=== PATIENT | female | born 1940 | race Caucasian/White ===

== ENCOUNTER → 2020-08-21 | Outpatient (CLI) | payer MEDICARE, OTHER ==
[~2020-08-21] MED LIST: ACET325 PO; LEVO750 PO; ONDA4ODT MM; RXONDA4ODT MM
== END | disposition home or self-care (01) ==
LOC: LAB SHORT 15:16 → PLD 15:16
DX: D17.22 Benign lipomatous neoplasm of skin and subcutaneous tissue of left arm (principal)
CPT/HCPCS: 88304

== ENCOUNTER → 2020-09-03 | Outpatient (CLI) | payer MEDICARE, OTHER | END | disposition home or self-care (01) | LOC: PLD 10:57 → LAB SHORT 10:57 | DX: D17.22 Benign lipomatous neoplasm of skin and subcutaneous tissue of left arm (principal) | CPT/HCPCS: 88305 ==

== ENCOUNTER 2021-03-26 06:42 | Day surgery (SDC) | payer MEDICARE, OTHER ==
[~2021-03-26] VITALS: Ht 162.6 cm; Wt 60.8 kg
[~2021-03-26 06:42] MED LIST changes: +HYDCHL25 PO
--- NOTE | 2021-03-26 11:49 | NUR ---
OFFICE CALLED TO SEE IF NUTRITION CONSULT OR APPT HAD BEEN SET UP FOR PT. NOTHING SET UP AT THIS TIME. PT WANTING TO LEAVE DUE TO DAUGHTER WAITING OUTSIDE. SALINE LOCK REMOVED AND DISCHARGE GONE OVER WITH PT, VERBALIZES UNDERSTANDING.
--- NOTE | 2021-03-26 12:08 | NUR ---
DR BIRMINGHAM IN TALKED WITH PT ABOUT GETTING APPT SET UP WITH [facility]. PT TO PRIVATE VEHICLE PER W/C WITH ONE STAFF.
== END 2021-03-26 12:00 | disposition home or self-care (01) ==
LOC: MHTC 06:42
DX: R13.12 Dysphagia, oropharyngeal phase (principal); T17.908S Unspecified foreign body in respiratory tract, part unspecified causing other injury, sequela; I48.91 Unspecified atrial fibrillation; I10 Essential (primary) hypertension; Z87.891 Personal history of nicotine dependence; Z88.8 Allergy status to other drugs, medicaments and biological substances
CPT/HCPCS: 49440; 99152; 99153; C1769; C1887; J2250; J3010; J7030; Q9967

== ENCOUNTER 2021-09-02 09:55 | Day surgery (SDC) | payer MEDICARE, OTHER ==
[~2021-09-02] VITALS: Ht 162.6 cm; Wt 59.0 kg
[~2021-09-02 09:55] MED LIST changes: +PERIDEX15 ML MM
--- NOTE | 2021-09-02 14:30 | NUR ---
DISCHARGE PT REMAINED A&OX3 AND DENIED ANY PAIN DURING RECOVERY. NO SEDATION GIVEN IN PROCEDURE. UPPER GASTRIC SITE REMAINS CDI-NO HEMATOMA NOTED-SPLIT 4X4'S IN PLACE. AN IV WAS NOT PLACED FOR THIS PROCEDURE. DISCHARGE PAPERWORK GONE OVER WITH PT. PT VERBALLY STATED THE UNDERSTANDING OF THE DISCHARGE EDUCATION AND DENIED ANY QUESTIONS AT THIS TIME. PT WHEELED OUT BY THIS NURSE. MESSAGE LEFT WITH BIBI FOR FOLLOW-UP APPOINTMENT.
== END 2021-09-02 15:15 | disposition home or self-care (01) ==
LOC: MHTC 09:55
DX: R13.12 Dysphagia, oropharyngeal phase (principal); K94.23 Gastrostomy malfunction; I10 Essential (primary) hypertension; I48.91 Unspecified atrial fibrillation; Y83.8 Other surgical procedures as the cause of abnormal reaction of the patient, or of later complication, without mention of misadventure at the time of the procedure; Z87.891 Personal history of nicotine dependence; Z88.8 Allergy status to other drugs, medicaments and biological substances
CPT/HCPCS: C1769; Q9967

== ENCOUNTER 2022-08-26 06:52 | Day surgery (SDC) | payer MEDICARE, OTHER ==
[~2022-08-26] VITALS: Ht 162.6 cm; Wt 60.9 kg
--- NOTE | 2022-08-26 08:46 | NUR ---
PT RETURNED TO RECOVERY ROOM IN BED. G-TUBE SITE STABLE WITH NO BLEEDING, NO HEMATOMA, NO REDNESS AND INTACT DRESSING IN PLACE.
== END 2022-08-26 09:00 | disposition home or self-care (01) ==
LOC: MHTC 06:52
DX: Z43.1 Encounter for attention to gastrostomy (principal); R13.12 Dysphagia, oropharyngeal phase; Z87.891 Personal history of nicotine dependence; I10 Essential (primary) hypertension; Z88.8 Allergy status to other drugs, medicaments and biological substances
CPT/HCPCS: 49450; C1769; Q9967

== ENCOUNTER 2023-04-20 06:58 | Day surgery (SDC) | payer MEDICARE, OTHER ==
[~2023-04-20] VITALS: Ht 162.6 cm; Wt 59.4 kg
[~2023-04-20 06:58] MED LIST changes: +ENSURE PLUS HI237 ML PO
[2023-04-20 07:23] VITALS: BP 155/94
[2023-04-20 07:24] VITALS: BP 155/94
[2023-04-20 09:05] VITALS: BP 157/77
--- NOTE | 2023-04-20 09:06 | NUR ---
PATIENT RETURNED FROM THE [facility] S/P NEW PLACEMENT OF THE G TUBE. USED THE SMAE TRACK WITH DILATOR AND SMALL AMOUNT OF SEDATION. PATIENT IS AWAKE AND IN A RECLINER CHAIR. PLACED ON THE MONITOR AND GIVEN BREAKFAST TRAY TO EAT. CALL LIGHT IN REACH. SLIGHT DYSPHAGIA NOTED AND EATING SLOWLY TO ACCOMODATE THE DYSPHAGIA. SBAR RECEIVED FROM MARITO PARKINSON AND BELIA RTR
[2023-04-20 09:15] VITALS: BP 169/101
[2023-04-20 09:30] VITALS: BP 169/88
--- NOTE | 2023-04-20 09:30 | NUR ---
NOTIFIED CELIA LAU FOR SID AND SHE WILL BE HERE SHORTLY TO ESCORT MOM HOME. PATIENT IS FINISHING BREAKFAST TRAY. VVS. NO PAIN, DRESSING CDI AT GT SITE.
--- NOTE | 2023-04-20 10:05 | NUR ---
PIV REMOVED, CATH TIP INTACT AND PRESSURE DRESSING APPLIED. PATIENT WAS DRESSING AND GTUBE POPED OUT. SITE WAS BLOODY, DR. SCHMITT CALLED TO THE BEDSIDE AND GTUBE TESTED, BULB WAS SLOWLY LEAKING AND NOT HOLDING STERILE WATER. VERIFIED BY DR. BIRMINGHAM, NURSE, AND TECH AT THE BEDSIDE. PATEITN BACK IN A GOWN AND WILL PLACE A NEW TUBE MOMENTAIRLY.
--- NOTE | 2023-04-20 11:01 | NUR ---
PATIENT BACK FROM THE CATHLAB WITH NEW GTUBE IN PLACE. DRESSED AND GTUBE SITE VISUALIZED. NO DRAINAGE NOTED. NO BLEEDING.DRESSSING CDI. DAUGHTER AT THE BEDSIDE. REVIEWED DISCHARGE INSTRUCTISON AND ALL SIGNED. DISCHARGED HOME WITH DAUGHTER AFTER PATIENT DRESSED AND ALL BELONGINGS DRESSED.
== END 2023-04-20 11:30 | disposition home or self-care (01) ==
LOC: MHTC 06:58
DX: K94.23 Gastrostomy malfunction (principal); Z87.891 Personal history of nicotine dependence; I10 Essential (primary) hypertension; Z88.8 Allergy status to other drugs, medicaments and biological substances
CPT/HCPCS: 49450; 99152; 99153; C1769; C1887; J2250; J3010; J7040; Q9967

== ENCOUNTER → 2023-08-05 | Outpatient (CLI) | payer MEDICARE, OTHER ==
[2023-08-05 08:58] LABS: Source, Urine Clean Catch
[2023-08-05 12:31] LABS: Appearance, Urine Clear (Clear); Bilirubin, Urine Neg (Neg); Blood, Urine 2+ (Neg); Color, Urine Yellow (P-Yellow); Glucose Qualitative, Urine Neg (Neg); Ketones, Urine Neg (Neg); Leukocyte Esterase, Urine 2+ (Neg); Nitrite, Urine Neg (Neg); Protein, Urine Neg (Neg); Urobilinogen, Urine NORM (Normal)
[2023-08-05 12:37] LABS: Bacteria Rare /hpf; Squamous Epithelial Cells Rare /hpf (Few)
== END | disposition home or self-care (01) ==
LOC: LAB 08:51 → LAB SHORT 08:51 → EDSTATUS 07-02 14:20 → LAB FUT 07-02 14:20
PROVIDERS: Nurse Practitioner Family
DX: I10 Essential (primary) hypertension (principal)
CPT/HCPCS: 81001; 87086

== ENCOUNTER 2023-10-14 11:10 | Day surgery (SDC) | payer MEDICARE, OTHER ==
[~2023-10-14] VITALS: Ht 162.6 cm; Wt 59.4 kg
[2023-10-14 12:01] VITALS: BP 137/81
[2023-10-14 13:19] VITALS: BP 166/95
== END 2023-10-14 15:18 | disposition home or self-care (01) ==
LOC: MHTC 11:10
DX: Z43.1 Encounter for attention to gastrostomy (principal); R13.12 Dysphagia, oropharyngeal phase; I10 Essential (primary) hypertension; I48.91 Unspecified atrial fibrillation; Z87.891 Personal history of nicotine dependence; Z88.8 Allergy status to other drugs, medicaments and biological substances; Z79.899 Other long term (current) drug therapy
CPT/HCPCS: 49450; C1769; Q9967

== ENCOUNTER 2024-10-23 12:24 | Emergency (ER) | payer MEDICARE, OTHER ==
[~2024-10-23] VITALS: Ht 162.6 cm; Wt 55.8 kg
[2024-10-23] MEDS ORDERED: Lidocaine 2% Jelly Uro-Jet ONE (16:15)
[2024-10-23 19:45] VITALS: BP 140/97
== END 2024-10-23 22:14 | disposition home or self-care (01) ==
LOC: ER 12:24
DX: T85.528A Displacement of other gastrointestinal prosthetic devices, implants and grafts, initial encounter (principal); Y73.8 Miscellaneous gastroenterology and urology devices associated with adverse incidents, not elsewhere classified; Z88.8 Allergy status to other drugs, medicaments and biological substances; Z79.899 Other long term (current) drug therapy; Z87.891 Personal history of nicotine dependence
CPT/HCPCS: 99282; C1725; C1729; C1769; Q9967

== ENCOUNTER 2024-10-24 10:02 | Emergency (ER) | payer MEDICARE, OTHER ==
[~2024-10-24] VITALS: Ht 162.6 cm; Wt 55.3 kg
[2024-10-24] MEDS ORDERED: FentaNYL Citrate 50 MCG/ML 2 ML Injection ONE (11:55)
[2024-10-24] MEDS ORDERED: Midazolam HCl 1MG / ML 2ML Vial ONE (11:55)
[2024-10-24] MEDS ORDERED: NS 500 ML IV ONE (11:55)
[2024-10-24] MEDS ORDERED: Lidocaine 2% Jelly Uro-Jet ONE (12:45)
[2024-10-24 13:10] VITALS: BP 171/99
--- NOTE | 2024-10-24 13:33 | NUR ---
PT DIRECT ADMIT FROM ER TO MEDICAL DOCTOR NUCLEAR MEDICINE AT 1222 FOR GTUBE EXCHANGE. PT WILFREDO PROCEDURE WELL. ABLE TO TRANSFER FROM BED TO CHAIR POST PROCEDURE. PT WIDE AWAKE AND ALERT, DENIES COMPLAINTS. TO RECOVERY ROOM AT 1301. POST VSS. PT'S DAUGHTER AT BEDSIDE. VERBAL AND WRITTEN DISCHARGE INSTRUCTIONS GIVEN TO PATIENT AND PT'S DAUGHTER WITH CLEAR UNDERSTANDING. PT DC'D HOME IN STABLE CONDITION AT 1315. PT ESCORTED TO ICU WITH DAUGHTER VIA WHEELCHAIR. PT REQUESTED TO GO TO ICU TO SEE HER WHOM WAS ADMITTED TO ICU.
== END 2024-10-24 12:19 | disposition still patient (30) ==
LOC: ER 10:02
DX: Z43.1 Encounter for attention to gastrostomy (principal); I48.91 Unspecified atrial fibrillation; Z87.891 Personal history of nicotine dependence; Z88.8 Allergy status to other drugs, medicaments and biological substances; Z79.899 Other long term (current) drug therapy
CPT/HCPCS: 49450; 99152; 99284; C1769; J2250; J3010; J7040; Q9967

== ENCOUNTER 2025-02-05 09:51 | Emergency (ER) | payer MEDICARE, OTHER ==
[~2025-02-05] VITALS: Ht 160 cm; Wt 54.9 kg
[2025-02-05 10:25] VITALS: BP 162/90
== END 2025-02-05 11:55 | disposition home or self-care (01) ==
LOC: ER 09:51
DX: K94.23 Gastrostomy malfunction (principal); Z87.891 Personal history of nicotine dependence; Z59.89 Other problems related to housing and economic circumstances
CPT/HCPCS: 49465; Q9963

== ENCOUNTER 2025-04-14 06:58 | Emergency (ER) | payer MEDICARE, OTHER ==
[~2025-04-14] VITALS: Ht 162.6 cm; Wt 54.4 kg
[2025-04-14] MEDS ORDERED: Lidocaine 2% Jelly Uro-Jet TOP ONE (07:45)
[2025-04-14 09:09] VITALS: BP 149/90
== END 2025-04-14 09:10 | disposition home or self-care (01) ==
LOC: ER 06:58
DX: Z46.59 Encounter for fitting and adjustment of other gastrointestinal appliance and device (principal); I48.91 Unspecified atrial fibrillation; Z87.891 Personal history of nicotine dependence; Z79.899 Other long term (current) drug therapy; Z88.8 Allergy status to other drugs, medicaments and biological substances
CPT/HCPCS: 43762; 49465; 99283-25; Q9963

== ENCOUNTER 2025-08-16 07:19 | Day surgery (SDC) | payer MEDICARE, OTHER ==
[~2025-08-16] VITALS: Ht 162.6 cm; Wt 56.2 kg
[~2025-08-16 07:19] MED LIST changes: +LOSA50 PO
[2025-08-16 07:52] VITALS: BP 136/99
[2025-08-16 07:53] VITALS: BP 136/99
[2025-08-16] MEDS ORDERED: NS 500 ML IV ONE (07:57)
[2025-08-16 08:00] VITALS: BP 146/97
[2025-08-16] MEDS ORDERED: Lidocaine 2% Jelly Uro-Jet ONE (08:36)
[2025-08-16 09:03] VITALS: BP 147/91
--- NOTE | 2025-08-16 09:07 | NUR ---
PT BACK TO RECOVERY, NO SEDATION USED. DR BIRMINGHAM AT BEDSIDE. PT ABLE TO D/C. PT VERBALIZE D/C INSTRUCTIONS AND GETTING DRESSED.
--- NOTE | 2025-08-16 09:13 | NUR ---
PT AMBUALTES OUT OF DEPT. D/C INSTRUCTIONS IN HAND.
== END 2025-08-16 15:19 | disposition home or self-care (01) ==
LOC: MHTC 07:19
DX: Z43.1 Encounter for attention to gastrostomy (principal); I10 Essential (primary) hypertension; I48.91 Unspecified atrial fibrillation; G60.8 Other hereditary and idiopathic neuropathies; Z87.891 Personal history of nicotine dependence; Z88.8 Allergy status to other drugs, medicaments and biological substances; Z79.899 Other long term (current) drug therapy
CPT/HCPCS: 49450; C1769; J7040; Q9967